=== PATIENT | female | born 1935 | race Caucasian/White ===

== ENCOUNTER → 2017-10-18 | Day surgery (SDC) | payer OTHER ==
--- NOTE | 2017-10-15 09:18 | Diagnostic Imaging Report ---
PROCEDURE: X-RAY CHEST, TWO VIEWS COMPARISON: None. INDICATIONS: PRE-OPERATIVE CHEST X-RAY FINDINGS: The lungs are well-inflated. No focal consolidation, pleural effusion, or pneumothorax. Tortuosity and atherosclerotic calcification of the thoracic aorta with an otherwise normal cardiomediastinal contour. No acute osseous abnormality. Surgical clips project over the upper abdomen on the lateral radiograph likely reflective of cholecystectomy. CONCLUSION: No acute cardiopulmonary abnormality. Dictated by: Koffi Velasquez M.D. on 10/15/2017 at 9:21 Electronically approved by: Koffi Velasquez M.D. on 10/15/2017 at 9:21
[2017-10-15 09:26] LABS: BASOPHILS % 0.4 % (0.0-1.0); EOSINOPHILS # (AUTO) 0.2 (0.0-0.4); EOSINOPHILS % 2.1 % (0.0-6.0); HEMATOCRIT 39.3 % (34.2-44.1); HEMOGLOBIN 12.6 g/dL (12.0-16.0); LYMPHOCYTES # (AUTO) 1.2 (1.0-3.2); LYMPHOCYTES % 15.7 % (18.0-39.1); MEAN CORPUSCULAR HEMOGLOBIN 28.3 pg (28-32); MEAN CORPUSCULAR HGB CONC 32.1 g/dL (31-35); MEAN CORPUSCULAR VOLUME 88.1 fL (81-99); MONOCYTES # (AUTO) 0.6 (0.2-0.8); MONOCYTES % 8.2 % (4.4-11.3); NEUTROPHILS # (AUTO) 5.4 (2.1-6.9); NEUTROPHILS % 73.3 % (38.7-80.0); PLATELET COUNT 203 x10e3/uL (140-360); RED BLOOD COUNT 4.46 x10e6/uL (3.6-5.1); RED CELL DISTRIBUTION WIDTH 13.4 % (11.7-14.4)
[~2017-10-18] MED LIST: ASPIR 8181 MG PO; BUPIVACAINE 0.25%/EPI 30ML SDV INJ ONE; DEXAMETHASONE SOD PHOS INJ 4 MG/ML VIAL ONE; FENTANYL CITRATE/PF 100MCG/2 ML INJ ONE; KETOROLAC TROMETHAMINE 30 MG/ML VIAL ONE; LIDOCAINE HCL 2% LOCAL INJ 5 ML SDV VIAL INJ ONE; LISINOPRIL20 MG PO; METHYLENE BLUE 1% INJ 10 ML VIAL INJ ONE; MIDAZOLAM HCL 2 MG/2 ML VIAL ONE; OMEPRAZOLE40 MG PO; ONDANSETRON HCL INJ 2 MG/ML VIAL ONE; PRAVASTATIN SOD20 MG PO; PREDNISONE5 MG PO; PROLIA60 MG/1 ML INJ; PROPOFOL IV EMULSION 10 MG/ML 20 ML VIAL ONE; SEVOFLURANE INHAL SOLN 250 ML PEN BTL ONE; VITAMIN D2000 UNIT PO; VITAMIN E1000 UNIT PO
--- OUTSIDE RECORDS SUMMARY | 2017-10-18 05:38 | XMS REPORT ---
Author Author [facility] Address Unknown Phone Unavailable Care Team Providers Care Surgery Attendant Name Role Phone SKINNY MANCIA Unavailable Unavailable Problems This patient has no known problems. Allergies, Adverse Reactions, Alerts This patient has no known allergies or adverse reactions. Medications This patient has no known medications. Results Test Description Test Time Test Comments Text Results Atomic Results Result Comments CHEST 2 VIEWS [place] [address] Patient Name: ISABELLE NOVAK MR #: [id number] : 1935 Age/Sex: 82/F Req #: [id number] Adm Physician: Ordered by: SKINNY MANCIA MD Report #: [id number] Location: OR Room/Bed: Procedure: [id number] DX/CHEST 2 VIEWS Exam Date: 10/15/17 Exam Time: 0856 REPORT STATUS: Signed PROCEDURE: X-RAY CHEST, TWO VIEWS COMPARISON: None. INDICATIONS: PRE-OPERATIVE CHEST X-RAY FINDINGS: The lungs are well-inflated. No focal consolidation, pleural effusion, or pneumothorax. Tortuosity and atherosclerotic calcification of the thoracic aorta with an otherwise normal cardiomediastinal contour. No acute osseous abnormality. Surgical clips project over the upper abdomen on the lateral radiograph likely reflective of cholecystectomy. CONCLUSION: No acute cardiopulmonary abnormality. Dictated by: Veena To M.D. on 10/15/2017 at 9:21 Electronically approved by: Veena To M.D. on 10/15/2017 at 9:21 Dictated By: VEENA TO MD 0 Transcribed By: ROLAND on 10/15/17920 COPY TO: SKINNY MANCIA MD
--- NOTE | 2017-10-31 14:38 | Operative Report ---
DATE OF PROCEDURE: October 18, 2017 PREOPERATIVE DIAGNOSIS: Vaginal fistula. POSTOPERATIVE DIAGNOSIS: Vaginal fistula. PROCEDURE PERFORMED: Vaginal fistula repair. SENIOR GRANTS OFFICER: None. ANESTHESIA: General. ESTIMATED BLOOD LOSS: Minimal. COMPLICATIONS: None. FINDINGS: Pinpoint fistula noted in the patient's vaginal mucosa at a site approximately 2 cm from the vaginal cuff on the patient's right-hand side. SPECIMENS: None. INDICATIONS: The patient is an 82-year-old female with history of vaginal fistula. PROCEDURE NOTE: Prior to the procedure, the risks, benefits and alternatives were discussed and the patient agreed to proceed. Following anesthesia, the patient was placed in the modified dorsal lithotomy position in [facility] an acute care hospital. Prepping and draping was performed in typical sterile fashion. A time-out was done. A weighted speculum was placed in the vagina. The fistula was then identified and the area surrounding it was grasped with an Allis camp. An area of approximately 2 cm diameter was infiltrated underneath the vaginal mucosa with a solution of Marcaine with Epinephrine. An incision was then made with a scalpel at this level and an additional Allis clamp placed on the edge of the mucosa in order to retract. Metzenbaum scissors were then used to undermine the mucosa in this area and the vaginal mucosa was removed. A 2-0 Vicryl suture was then used to imbricate first the fascia and then the edges of the vaginal mucosa in multiple layers over the area of the fistula. The surgical site was noted to be hemostatic. All instruments were removed from the patient's vagina. Sponge, lab, needle and instrument counts were correct times 2. The patient was awakened from general anesthesia and brought to the recovery room in stable condition. Job#: [id number] JEAN MARIE
== END | disposition home or self-care (01) ==
LOC: OR 05:36
PROVIDERS: ATTEND Obstetrics & Gynecology Obstetrics
DX: N82.3 Fistula of vagina to large intestine (principal); I10 Essential (primary) hypertension; Z88.5 Allergy status to narcotic agent; Z88.0 Allergy status to penicillin; Z01.810 Encounter for preprocedural cardiovascular examination; Z01.812 Encounter for preprocedural laboratory examination; Z01.818 Encounter for other preprocedural examination; Z79.82 Long term (current) use of aspirin
CPT/HCPCS: 36415; 57300; 71046; 85025; 93005; J1100; J1885; J2001; J2250; J2405